=== PATIENT | female | born 1995 | race Caucasian/White ===

== ENCOUNTER 2017-04-14 11:37 | Emergency (ER) | payer OTHER ==
[~2017-04-14] VITALS: Ht 167.6 cm; Wt 90.7 kg
[2017-04-14 12:00] LABS: URINE SOURCE CLEAN CATCH
[2017-04-14 12:14] LABS: URINE APPEARANCE SL CLOUDY; URINE COLOR ORANGE
[2017-04-14 12:15] LABS: URINE GLUCOSE NORM (NEG); URINE ICTOTEST NEG (NEG); URINE KETONE NEG (NEG); URINE LEUKOCYTE ESTERASE 2+ (NEG); URINE NITRATE POS (NEG); URINE PROTEIN 1+ (NEG)
[2017-04-14 12:20] LABS: URINE BILIRUBIN NEG (NEG); URINE BLOOD 1+ (NEG); URINE UROBILINOGEN 8 MG/DL (NEG)
[2017-04-14 12:21] LABS: CULTURE INDICATED? YES; URINE BACTERIA AUWI 1+ (NEGATIVE); URINE SQUAMOUS EPITHELIAL CELL OCCAS /[HPF]
[2017-04-14 12:22] LABS: URINE MUCUS PRESENT
== END 2017-04-14 12:50 | disposition home or self-care (01) ==
LOC: CED 11:37
PROVIDERS: Physician Assistant Medical
DX: N30.00 Acute cystitis without hematuria (principal)
CPT/HCPCS: 81003; 84703; 87086; 99283